=== PATIENT | male | born 1950 | race Two or more races ===

== ENCOUNTER 2017-12-21 03:19 | Emergency (ER) | payer OTHER, MEDICARE ==
[~2017-12-21] VITALS: Ht 177.8 cm; Wt 81.6 kg
[2017-12-21] MEDS ORDERED: PSEUDOEPHEDRINE HCL 30 MG TABLET ONE ×2 (03:53→03:54)
[2017-12-21] MEDS ORDERED: PSEUDOEPHEDRINE HCL 30 MG TABLET PO ONE ×3 (04:00→04:30)
[2017-12-21] MEDS ORDERED: AMLODIPINE BESYLATE 5 MG TABLET ONE (04:11)
[2017-12-21 04:14] VITALS: BP 161/107
--- NOTE | 2017-12-21 04:15 | NUR ---
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 MADE AWARE
[2017-12-21] MEDS ORDERED: AMLODIPINE BESYLATE 5 MG TABLET PO ONE (04:30)
== END 2017-12-21 05:11 | disposition home or self-care (01) ==
LOC: ER 03:20
DX: N48.33 Priapism, drug-induced (principal); T50.995A Adverse effect of other drugs, medicaments and biological substances, initial encounter; I10 Essential (primary) hypertension; J45.909 Unspecified asthma, uncomplicated; E03.9 Hypothyroidism, unspecified; F10.10 Alcohol abuse, uncomplicated; Y90.9 Presence of alcohol in blood, level not specified; Z85.46 Personal history of malignant neoplasm of prostate; Z88.0 Allergy status to penicillin; Y92.89 Other specified places as the place of occurrence of the external cause
CPT/HCPCS: 99284; A4606 ×2; Z7610 ×2